=== PATIENT | male | born 1965 | race Caucasian/White ===

== ENCOUNTER 2024-01-07 16:32 | Emergency (ER) | payer OTHER, SELFPAY ==
[2024-01-07 16:36] VITALS: BP 148/96
[2024-01-07 17:17] VITALS: BMI 33.2
[2024-01-07 17:20] VITALS: BP 146/89
[2024-01-07] MEDS: NSS 1000 IV (17:30)
[2024-01-07 17:37] LABS: % Basophils 0.5 % (0-2); % Eosinophils 0.8 % (0-6); % Immature Granulocytes 0.8 % (0-0.5); % Lymphocytes 21.4 % (20.5-51.1); % Monocytes 8.7 % (1.7-9.3); % Neutrophils 67.8 % (42.2-75.2); Absolute Lymphocytes 0.8 10^3/uL (1.2-3.4); Absolute Monocytes 0.3 10^3/uL (0.1-0.6); Absolute Neutrophils 2.5 10^3/uL (1.4-6.5); Hematocrit 44.1 % (39.0-52.0); Hemoglobin 16.1 g/dL (13.0-18.0); Mean Corp Hgb Conc. 36.5 g/dL (33.0-37.0); Mean Corpuscular Hgb 33.8 pg (27.0-31.0); Mean Corpuscular Volume 92.5 fL (80.0-94.0); Mean Platelet Volume 8.9 fL (7.4-10.4); Nucleated Red Blood Cells % 0 % (-); Platelet Count 119 10^3/uL (130-400); Red Blood Cell Count 4.77 10^6/uL (4.70-6.10); Red Cell Dist. Width 11.8 % (11.5-14.5); White Blood Cell Count 3.7 10^3/uL (4.8-10.8)
--- NOTE | 2024-01-07 17:43 | ED.GENMED ---
History of Present Illness
General
Chief Complaint: Fever
Source: patient and spouse
Exam Limitations: none
Time Seen by Provider: 01/07/24 17:06
Travel History
Have you had any contact with someone who has COVID-19?: No
Do you have any symptoms of coronavirus? Fever > 100 degrees, chills, cough, shortness of breath, sore throat, loss of taste or smell, muscle aches, or headache?: No
History of Present Illness
History of Present Illness:
This is a 58yo male who presents with fever and rash. he states that he has had a fever for about 4 days and just today his noted a rash. admits to mild congestion and mild cough. no sick contacts. no vomiting. no recent travel. no know tick
bites. no neck pain or GAMBLE. pt states he assumed it was the flu. he did have a flu vaccine. does admit to bodyaches and mild joint pain.
Past History
Past History
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
ED Past Surgical History: Other (vertebral artery surgery)
Phy Exam
Physical Exam
Physical Exam:
CONSTITUTIONAL Patient alert and oriented to person, place and time. Well-appearing. Vital signs reviewed.
HEAD atraumatic, normocephalic.
EYES eyelids normal to inspection, Pupils equally round and reactive to light, Extraocular muscles intact, Conjunctiva normal, Sclera normal.
NECK normal range of motion, Trachea midline, no jugular venous distention.
RESPIRATORY CHEST No respiratory distress noted, Chest expansion equal, Bilateral breath sounds clear.
CARDIOVASCULAR regular rate and rhythm, Heart sounds normal.
ABDOMEN abdomen nontender, Bowel sounds normal. No distention.
BACK normal inspection, no obvious deformities
UPPER EXTREMITY range of motion normal, Motor strength normal, no cyanosis, no edema.
LOWER EXTREMITY range of motion normal, Motor strength normal, no cyanosis, no edema.
NEURO Speech normal, No focal motor deficits, Nelda coma scale 15, Memory normal, Cranial Nerves intact to screening exam.
SKIN skin warm, dry. There is a maculopapular rash noted on the extremities and trunk. It spares the palms and soles of the feet. It clearly blanches. Pulse. The lesions are a pink mostly round lesions some of which coalesce. There are no
patches. No petechiae. No vesicles.
PSYCHIATRIC patient oriented to person place and time, Normal affect.
Course
Orders/Labs/Results
Orders:
Orders
01/07/24 17:26
Comprehensive Metabolic Panel Urgent
01/07/24 17:28
COVID-19 Antigen Urgent
Source: Nasal Swab
Complete Blood Count/With Diff Urgent
Marielena-Quintanilla Virus Ab Panel I [S] Urgent
Comment: ADD ON
Lyme Progressive Urgent
Monotest Urgent
Comment: ADD ON
01/07/24 17:30
0.9% Sodium Chloride 1000 ml [Nss] 1,000 ml IV BOLUS
01/07/24 17:41
CR Chest - 2 Views Urgent
Comment:
Reason For Exam: fever
01/07/24 17:56
Legionella Urinary Antigen Urgent
HUGO Source: Urine
Specimen Description:
01/07/24 17:58
Add On- LAB Urgent
Tests Added?: mono
01/07/24 18:00
Add On - Microbiology Urgent
Tests Added?: EBV
Abnormal Lab Results
01/07/24 01/07/24
17:26 17:28
WBC 3.7 L 10^3/uL
(4.8-10.8)
MCH 33.8 H pg
(27.0-31.0)
Plt Count 119 L 10^3/uL
(130-400)
Absolute Lymphs (auto) 0.8 L 10^3/uL
(1.2-3.4)
Immature Gran % 0.8 H %
(0-0.5)
Sodium 133 L mmol/L
(135-145)
Glucose 109 H mg/dl
(70-99)
Total Bilirubin 1.8 H mg/dl
(0.2-1.3)
AST 148 H U/L
(17-59)
ALT 123 H U/L
(0-50)
01/07/24 17:28
01/07/24 17:26
Vital Signs
Initial and Last Documented VS:
Initial Vital Signs
Temp Pulse Resp BP Pulse Ox
99.6 F 101 16 148/96 95
01/07/24 16:36 01/07/24 16:36 01/07/24 16:36 01/07/24 16:36 01/07/24 16:36
Last Documented Vital Signs
Temp Pulse Resp BP Pulse Ox
99.6 F 72 14 146/89 96
01/07/24 16:36 01/07/24 17:45 01/07/24 17:45 01/07/24 17:20 01/07/24 17:45
MDM/Problems Addressed
MDM/Problems Addressed:
Fever, rash, suspected viral syndrome
*Radiology
Radiology exam reviewed: all reviewed NAD by ED Provider
*Pulse Oximetry
Patient hypoxic: no
*[employer] Interpretation
Rate: normal
Interpretation: normal
Rhythm: sinus
*Critical Care Note
Total Time (30-74mins, 75-104mins- exclusive of procedures): Not Applicable
Data Reviewed
Source: patient and spouse
Prescriptions/Medications Considered But Not Given:
Consider antibiotics but no active signs of bacterial infection.
Patient Management
Escalation/DeEscalation of care consider admission/obs:
Patient appears well. Suspect viral source. Marielena-Quintanilla panel sent. In addition Lyme sent. Chest x-ray negative. Patient overall appears well. Do suspect viral source in light of mild leukopenia and bone marrow suppression and mild bump in
LFTs. Patient denies any abdominal symptoms. Recommended continue fever control, fluids and outpatient follow-up
ED Attending Note
-
Portions of this chart may have been created with voice recognition software.� Occasional wrong word or��sound alike� substitutions may have occurred due to the inherent limitations of voice recognition software.
Discharge Plan
Departure
Patient Disposition: Home (Routine Discharge)
Date of Disposition: 01/07/24
Time of Disposition: 18:38
Patient with high blood pressure during this ER visit?: Yes
Discharge Problem:
Fever, suspected viral syndrome, Rash
Instructions: Fever, Adult (DC), Viral Syndrome (DC), Viral Exanthem
Referrals:
Emanuel Gallegos MD [Family Provider] -
Activity Restrictions/Additional Instructions:
Lyme testing is pending. Please drink plenty fluids and use Tylenol and ibuprofen for fever control. Please see your doctor in the next 3 to 5 days for follow-up and reevaluation. Return immediately for lethargy, worsening breathing, changes in
mentation or any other concerns
Interventions
Interventions:
*Risk Screen - Suicide Last Done: 01/07/24 17:20
*General Assessment Last Done: 01/07/24 17:18
*Neglect/Abuse Screening Last Done: 01/07/24 17:20
ED- Fall Risk Assessment Last Done: 01/07/24 17:20
*ED COVID-19 Vaccine History Last Done: 01/07/24 16:36
ED- Neurological Assessment Last Done: 01/07/24 17:20
ED-Skin Assessment Last Done: 01/07/24 17:18
Discharge Date and Time
Print Language: EMIRATI
[2024-01-07 17:50] LABS: ALT (SGPT) 123 U/L (0-50); AST (SGOT) 148 U/L (17-59); Albumin 4.3 g/dl (3.5-5.0); Alkaline Phosphatase 76 U/L (38-126); Blood Urea Nitrogen 14 mg/dl (9-20); Calcium 9.3 mg/dl (8.4-10.2); Carbon Dioxide 27 mmol/L (22-30); Chloride 99 mmol/L (98-107); Estimated Creatinine Clearance 81 ml/min; Glucose 109 mg/dl (70-99); Potassium 4.4 mmol/L (3.5-5.1); Sodium 133 mmol/L (135-145); Total Bilirubin 1.8 mg/dl (0.2-1.3); Total Protein 6.8 g/dl (6.3-8.2); eGFR > 60.00
[2024-01-07 17:50] LABS: COVID-19 Antigen Negative (Negative)
[2024-01-07 18:25] LABS: Monotest Negative (Negative)
[2024-01-07 18:34] VITALS: BP 139/77
[2024-01-09 14:14] LABS: Lyme Antibody Screen, EIA Negative (Negative)
[2024-01-10 01:32] LABS: EBV-EA (D) Ab IgG 25.5 U/mL (0.0-10.9); EBV-NA IgG 76.5 U/mL (0.0-21.9); EBV-VCA IgM Antibodies <10.0 U/mL (0.0-43.9)
== END 2024-01-07 18:50 | disposition home or self-care (01) ==
LOC: EMR 16:32
PROVIDERS: EMERGENCY PHYSICIAN Emergency Medicine; FAMILY PHYSICIAN Family Medicine
DX: R50.9 Fever, unspecified (principal); R21 Rash and other nonspecific skin eruption; I10 Essential (primary) hypertension; E78.00 Pure hypercholesterolemia, unspecified
CPT/HCPCS: 99283; 71046; 80053; 85025; 86308; 86618; 86663; 86664; 86665; 87449; 87811

== ENCOUNTER → 2024-03-08 06:16 | Day surgery (SDC) | payer OTHER, SELFPAY | LOC: GI 06:16 | PROVIDERS: ATTENDING PHYSICIAN Internal Medicine | DX: Z12.11 Encounter for screening for malignant neoplasm of colon (principal); K57.30 Diverticulosis of large intestine without perforation or abscess without bleeding; K62.1 Rectal polyp; D12.3 Benign neoplasm of transverse colon | CPT/HCPCS: 45385; 45380; 88305 ==